=== PATIENT | male | born 1960 | race Caucasian/White ===

== ENCOUNTER 2025-03-03 06:00 | Day surgery (SDC) | payer MEDICARE, OTHER ==
[~2025-03-03] VITALS: Ht 160 cm; Wt 85.0 kg
[~2025-03-03 06:00] MED LIST: SODIUM CHLORIDE 0.9% 1,000 ML ONE
[2025-03-03] MEDS: SODIUM CHLORIDE 0.9% 1,000 ML IV ONE (07:44)
[2025-03-03] MEDS ORDERED: FentaNYL CITRATE PF 100 MCG/2 ML VIAL ONE (08:12)
[2025-03-03] MEDS ORDERED: MIDAZOLAM HCL 2 MG/2 ML VIAL ONE (08:12)
[2025-03-03] MEDS ORDERED: FLUT12AE3 IH (08:21)
[2025-03-03] MEDS ORDERED: TAMS0.4C94 PO (08:21)
[2025-03-03] MEDS ORDERED: APRE30TA5 PO (08:21)
[2025-03-03] MEDS ORDERED: METO-408 PO (08:21)
[2025-03-03] MEDS ORDERED: AMLO5TAB66 PO (08:21)
[2025-03-03 09:46] VITALS: PULSE 66; RESP 18; O2SAT 100
[2025-03-03] MEDS ORDERED: BENZOCAINE 20% 50 MCG/SPRAY 57 GM ONE (12:00)
[2025-03-03] MEDS ORDERED: LIDOCAINE 2% 11 ML JELLY ONE (12:00)
[2025-03-03] MEDS ORDERED: ALBUTEROL SULFATE 2.5 MG/0.5 ML NEB SOLUTION NEB ONE (12:00)
[2025-03-03] MEDS ORDERED: LIDOCAINE 4% 50 ML SOLUTION ONE (12:00)
== END 2025-03-03 13:30 | disposition home or self-care (01) ==
LOC: SDS 06:00
PROVIDERS: ATTEND Internal Medicine Critical Care Medicine
DX: R05.3 Chronic cough (principal); R49.0 Dysphonia; R06.1 Stridor; R91.8 Other nonspecific abnormal finding of lung field; J47.9 Bronchiectasis, uncomplicated; I10 Essential (primary) hypertension; J45.909 Unspecified asthma, uncomplicated; Z79.899 Other long term (current) drug therapy; Z90.49 Acquired absence of other specified parts of digestive tract; Z96.652 Presence of left artificial knee joint; Z98.890 Other specified postprocedural states
CPT/HCPCS: 31623; 87206; 87101; 87220; 87070; 88108; 31624; 71045; 87015; J3010; J2250; J2919; J7030; J7613; Z7610